=== PATIENT | female | born 1990 | race Caucasian/White ===

== ENCOUNTER → 2017-07-11 10:27 | Outpatient (REF) | payer MEDICAID, SELFPAY ==
[2017-07-11 13:58] LABS: Basophils % 0.4 % (0.1-2.0); Eosinophils # 0.1 K/mm3 (0.0-0.4); Eosinophils % 0.9 % (0.1-12.0); Hematocrit 43.1 % (37.0-47.0); Hemoglobin 14.4 g/dL (12.2-16.2); Lymphocytes # 2.8 K/mm3 (0.7-4.5); Mean Corpuscular HGB Conc 33.5 g/dL (31.8-35.4); Mean Corpuscular Hemoglobin 29.3 pg (27.0-31.2); Mean Corpuscular Volume 87.5 fl (81-99); Mean Platelet Volume 9.3 fl (7.4-10.4); Monocytes # 0.3 K/mm3 (0.1-1.0); Neutrophils # 3.3 K/mm3 (1.8-7.8); Neutrophils % 50.8 % (37.0-80.0); Platelet Count 198 K/mm3 (142-424); Red Blood Count 4.92 M/mm3 (4.20-5.40); Red Cell Distribution Width 13.3 % (11.5-17.5); White Blood Count 6.6 K/mm3 (4.8-10.8)
[2017-07-11 14:23] LABS: Alanine Aminotransferase 33 U/L (12-78); Albumin Level 4.4 gm/dL (3.4-5.0); Albumin/Globulin Ratio 1.2 (1.1-1.8); Alkaline Phosphatase 99 U/L (46-116); Anion Gap 14.5 mEq/L (5-15); Aspartate Amino Transferase 21 U/L (15-37); Bilirubin,Total 0.5 mg/dL (0.2-1.0); Blood Urea Nitrogen 11 mg/dL (7-18); Calcium 9.4 mg/dL (8.5-10.1); Carbon Dioxide 26 mmol/L (21.0-32.0); Chloride 103 mmol/L (98-107); Chol/HDL Ratio 4.3 (1-3.5); Cholesterol 227 mg/dL (140-200); Creatinine,Serum 0.68 mg/dL (0.55-1.02); Estimated Glomerular Filt Rate 103 ml/min (>60); GFR (African American) 125 ML/MIN (>60); Globulin 3.8 gm/dl (1.3-3.2); Glucose 89 mg/dL (74-106); HDL Cholesterol 53 mg/dL (29-89); LDL Cholesterol 153 mg/dL (0-130); Potassium 4.5 mmoL/L (3.5-5.1); Sodium 139 mmol/L (136-145); T4 (Thyroxine) 6.5 ug/dl (4.7-13.3); Thyroid Stimulating Hormone 7.65 uIU/ml (0.358-3.740); Total Protein,Serum 8.2 gm/dL (6.4-8.2); Triglycerides 104 mg/dL (30-200); VLDL Cholesterol 21 mg/dL (0-40)
[2017-07-13 08:49] LABS: Vitamin D 25 Hydroxy 31.6 ng/mL (30.0-100.0)
== END ==
LOC: LAB 10:27
PROVIDERS: Visit Provider Physician Assistant
DX: E66.9 Obesity, unspecified (principal); Z68.34 Body mass index [BMI] 34.0-34.9, adult
CPT/HCPCS: 80053; 80061; 82652; 84436; 84443; 85025